=== PATIENT | female | born 1955 | race Caucasian/White ===

== ENCOUNTER 2024-12-21 17:44 | Inpatient (IN) ==
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
[2024-12-21] MEDS ORDERED: ONDANSETRON INJ 2 MG/ML 2 ML VIAL IV PRN (21:50)
[2024-12-21] MEDS ORDERED: POLYETHYLENE (MIRALAX) 17 GM PACK PO PRN (21:50)
[2024-12-21] MEDS ORDERED: ACETAMINOPHEN 325 MG TAB PO PRN (21:50)
[2024-12-21] MEDS ORDERED: CARBOHYDRATES FOR HYPOGLYCEMIA PO PRN (22:39)
[2024-12-21] MEDS ORDERED: GLUCOSE 40% GEL 15 GM TUBE PO PRN (22:39)
[2024-12-21] MEDS ORDERED: GLUCAGON FOR INJ 1 MG VIAL SQ PRN (22:39)
[2024-12-21] MEDS ORDERED: GLUCOSE 10 TAB/TUBE PO PRN (22:39)
[2024-12-21] MEDS ORDERED: DEXTROSE 50% 50 ML SYRINGE IV PRN (22:39)
[2024-12-21] MEDS ORDERED: NON-FORMULARY MEDICATION (Fluticasone-Umeclidin-Vilanter [Trelegy Ellipta] 100-62.5-25 mcg INH SCH (22:45)
[2024-12-21] MEDS ORDERED: MELATONIN 3 MG TAB PO PRN (23:08)
--- NOTE | 2024-12-21 23:27 | XRay Report ---
Exam(s): XR CXR 1 VIEW EXAM: XR Chest, 1 View CLINICAL HISTORY: Reason for exam: CHF. Lordotic positioning and breathing motion artifact limits evaluation particularly of the lung bases. TECHNIQUE: Frontal view of the chest. COMPARISON: Screening chest CT 03/31/2024. FINDINGS: Lungs/Pleural space: Grossly clear, limited evaluation of the lung bases. Effusions and basilar infiltrates can be missed. No pneumothorax. Heart: [id number] cardiomegaly. Mediastinum: Unremarkable. Bones/Soft Tissues: No acute abnormality. IMPRESSION: 1. No definite acute process in the chest, though evaluation is limited due to patient positioning. 2. Consider follow up chest x-ray for further evaluation. Electronically signed by: Marlene Lopez M.D. 12/21/24 23:26 PM
[2024-12-21] MEDS: ENOXAPARIN INJ 40 MG/0.4 ML SYR SQ SCH (23:40)
[2024-12-22 00:05] LABS: Base Excess VBG 16.9 mEq/L; HCO3 VBG 43 mmol/L; Oxygen Saturation VBG 100.0 %; PCO2 VBG 55 mmHg (38-50); PO2 VBG 103 mmHg; pH VBG 7.50 (7.36-7.41)
[2024-12-22 00:12] LABS: Hematocrit (blood only) 37.8 % (37.0-47.0); Hemoglobin 11.6 g/dl (12.0-16.0); Immature Granulocytes # (auto) 0.03 K/uL (0.01-0.20); Immature Granulocytes % (auto) 0.3 %; Mean Corpuscular Hemoglobin 27.6 pg (25.0-34.0); Mean Corpuscular Volume 89.8 fL (80.0-100.0); Platelet Count 194 K/uL (130-400); RDW Standard Deviation 49.9 fL (36.4-46.3); Red Blood Count 4.21 M/uL (4.20-5.40); White Blood Count 9.89 K/ul (4.8-10.8)
[2024-12-22] MEDS ORDERED: ALBUT/IPRATROP 3MG/0.5MG NEB 3 ML VIAL NEB PRN (00:20)
[2024-12-22 00:30] LABS: Albumin Level 3.2 gm/dl (3.4-5.0); Anion Gap 6.0 (3-11); Bilirubin,Total 0.4 mg/dl (0.2-1.0); Calcium 9.2 mg/dl (8.6-10.3); Carbon Dioxide 39.0 mmol/L (21-32); Chloride 92.0 mmol/L (98-107); Potassium 3.6 mmol/L (3.5-5.1); Sodium 137.0 mmol/L (136-145)
[2024-12-22 00:36] LABS: Alanine Aminotransferase 6.0 U/L (7-52); Albumin Globulin Ratio 1.1 (0.9-2); Alkaline Phosphatase 97.0 U/L (34-104); Blood Urea Nitrogen 15.0 mg/dl (6-23); Creatinine Clr Calc Pharmacy 104.7 ml/min; Globulin 2.9 gm/dl (2.5-4.0); Glucose 122.0 mg/dl (70-99(Fasting)); Total Protein 6.1 gm/dl (6.0-8.3)
[2024-12-22 05:55] LABS: Base Excess VBG 17.6 mEq/L; HCO3 VBG 47 mmol/L; Oxygen Saturation VBG < 60.0 %; PCO2 VBG 75 mmHg (38-50); PO2 VBG 29 mmHg; pH VBG 7.40 (7.36-7.41)
[2024-12-22 06:01] LABS: Hematocrit (blood only) 39.5 % (37.0-47.0); Hemoglobin 12.0 g/dl (12.0-16.0); Immature Granulocytes # (auto) 0.04 K/uL (0.01-0.20); Immature Granulocytes % (auto) 0.5 %; Mean Corpuscular Hemoglobin 27.4 pg (25.0-34.0); Mean Corpuscular Volume 90.2 fL (80.0-100.0); Platelet Count 196 K/uL (130-400); RDW Standard Deviation 50.2 fL (36.4-46.3); Red Blood Count 4.38 M/uL (4.20-5.40); White Blood Count 7.85 K/ul (4.8-10.8)
[2024-12-22 06:45] LABS: Anion Gap 3.0 (3-11); Blood Urea Nitrogen 14.0 mg/dl (6-23); Calcium 9.1 mg/dl (8.6-10.3); Carbon Dioxide 42.0 mmol/L (21-32); Chloride 95.0 mmol/L (98-107); Creatinine Clr Calc Pharmacy 110.2 ml/min; Glucose 103.0 mg/dl (70-99(Fasting)); Potassium 3.8 mmol/L (3.5-5.1); Sodium 140.0 mmol/L (136-145)
--- NOTE | 2024-12-22 07:56 | XRay Report ---
EXAM: XR chest 1V portable CLINICAL HISTORY: F/u CHF TECHNIQUE: An X-ray image of the chest was obtained in AP projection. COMPARISON: None. FINDINGS: Ill-defined haziness is noted involving the bilateral lower zones, with the possibility of basal congestion likely. Cardiomegaly. No acute osseous abnormality is identified. IMPRESSION: Ill-defined haziness is noted involving the bilateral lower zones, with the possibility of basal congestion likely. Cardiomegaly. Electronically signed by Jim Holbrook 12-22-2024 07:54 AM
[2024-12-22] MEDS ORDERED: FUROSEMIDE 40 MG/4 ML VIAL IV SCH (09:00)
[2024-12-22] MEDS: INSULIN ASPART PER UNIT CHARGE SC SCH (09:54)
[2024-12-22] MEDS: FLUTICASONE FUROATE 100MCG 14 PUFFS/INHALER INH SCH (09:59)
[2024-12-22] MEDS: FLUTICASONE PROPIONATE NA SPR 16 GM BTL SCH (10:00)
[2024-12-22] MEDS: FUROSEMIDE 40 MG/4 ML VIAL IV SCH (10:02)
[2024-12-22] MEDS: TOPIRAMATE 100 MG TAB PO SCH (10:03)
[2024-12-22] MEDS: METOPROLOL TARTRATE 25 MG TAB PO SCH (10:03)
[2024-12-22] MEDS: LORATADINE 10 MG TAB PO SCH (10:03)
[2024-12-22] MEDS: UMECLIDINIUM/VILANTEROL 62.5/25MCG 7 PUFFS/INHALER INH SCH (10:03)
[2024-12-22] MEDS: GABAPENTIN 400 MG CAP PO SCH (10:03)
[2024-12-22] MEDS: VIBEGRON 75 MG TAB PO SCH (10:03)
--- NOTE | 2024-12-22 12:31 | Hospitalist Progress Note ---
Date of Service December 22, 2024 Assessment & Plan (1) Acute CHF (congestive heart failure): (2) COPD (chronic obstructive pulmonary disease): (3) Diabetes mellitus, type 2: (4) AUTUMN (obstructive sleep apnea): Plan Pt is a 69 yo female with a medical hx of COPD, new dx of HFpEF, AUTUMN on CPAP, restrictive airway disease, current smoker, NSTEMI in 2016, and type 2 DM not on insulin at home who presents from [facility] due to insurance issues for continued care of acute CHF exac and new oxygen dependence on 12/21/24. #Acute CHF exac - echo done at OSH on 12/21; EF 60-64% with grade 1 diastolic dysfunction - CXR from outside facility on 12/20; "probable bibasilar atelectasis with mild interstitial prominence" - continue diuresis today as 40 mg IV laxix daily - CXR in the am for comparison, am labs #COPD, not in overt exac on admission here - NM pulm vent/perfusion scan done on 12/21 (pt has allergy to CT contrast); no PE - no baseline O2 needs - given 125mg methylprednisolone 125mg, continue 40mg BID - plan for taper at discharge - continue duonebs scheduled q6h - continue home inhalers - saturating well on 2-3L - will do 2 step for qualification of home oxygen - incentive spirometer/flutter valve #AUTUMN - CPAP HS #DMT2 - hold home medications - will do SSI, no long acting as she is not typically on insulin at home (can add long acting if needed based on use) VTE: lovenox Admission and Anticipated Discharge Date Admission Date: December 21, 2024 Supervising Physician Co-Signing Physician Notes Attending attestation Pt seen and examined in concert with Dr. Marinelli. In agreement with the documented findings as noted in the resident documentation with any exceptions or additions as noted here. Improving shortness of breath at rest with good tolerance on RA with conversation with O2 over 88%. Does sleep with long hair cats at night at home, does not use CPAP as noted. Supposed to use O2 qHS at 2L per patient. VS as noted. On examination, S1/S2 nl RRR no MCG. Diffusely coarse breath sounds throughout with some end exp wheezing. Abd NT/ND BS+ve Acute HFpEF with echo 10.1 as noted - improving with diuresis on furosemide. Monitor BMP daily. COPD with suboptimal control in the setting of deconditioning - continue steroid therapy with likely taper on discharge vs. burst. Duonebs tolerated well with benefit. Encourage CPAP use while sleeping in hospital. Else see resident documentation as noted. Subjective Patient seen and evaluated at bedside this morning. No acute events overnight. States she is feeling somewhat better. No acute complaints. Review of Systems Review of Systems: reviewed, per HPI Physical Exam Physical Exam: Constitutional: ill appearing, no acute distress HEENT: NCAT, no conjunctival injection CV: regular rhythm, no murmur appreciated, extremities well-perfused, + LE edema Resp: decreased breath sounds throughout, poor air movement, -appreciable wheeze GI: nondistended MSK: no gross deformities appreciated Skin: warm, dry, no rash appreciated Neuro: alert, oriented, no focal neurologic deficit appreciated Results & Data Results & Data Vital Signs (Past 12 Hours) Vital Signs Temp Pulse Pulse Resp BP Pulse Ox O2 Del Method 12/22/24 11:25 37.2 C 68 20 111/69 93 Nasal Cannula 12/22/24 07:42 37.0 C 88 20 124/77 95 Nasal Cannula 12/22/24 07:00 85 12/22/24 03:11 37 C 64 16 116/69 94 Room Air 12/22/24 02:41 77 17 97 O2 Flow Rate 12/22/24 11:25 2 12/22/24 07:42 3 12/22/24 07:00 12/22/24 03:11 12/22/24 02:41 3 Resident Activity Tracking Resident Involvement: Resident Care Provided Care Provided: Adult Hospital Medicine (2) COPD (chronic obstructive pulmonary disease) COPD type: unspecified COPD Qualified Code(s): J44.9 - Chronic obstructive pulmonary disease, unspecified (3) Diabetes mellitus, type 2 Diabetes mellitus complication detail: with unspecified neuropathy Diabetes mellitus complication status: with neurologic complications Diabetes mellitus fdc insulin use: without termite control service representative use Qualified Code(s): E11.40 - Type 2 diabetes mellitus with diabetic neuropathy, unspecified
[2024-12-22] MEDS: ALBUT/IPRATROP 3MG/0.5MG NEB 3 ML VIAL NEB SCH (13:37)
[2024-12-22] MEDS: MELATONIN 3 MG TAB PO PRN (23:40)
--- NOTE | 2024-12-23 06:50 | Hospitalist Progress Note ---
Date of Service December 23, 2024 Assessment & Plan (1) Acute CHF (congestive heart failure): (2) COPD (chronic obstructive pulmonary disease): (3) Diabetes mellitus, type 2: (4) AUTUMN (obstructive sleep apnea): Plan Pt is a 69 yo female with a medical hx of COPD, new dx of HFpEF, AUTUMN on CPAP, restrictive airway disease, current smoker, NSTEMI in 2016, and type 2 DM not on insulin at home who presents from [facility] due to insurance issues for continued care of acute CHF exac and new oxygen dependence on 12/21/24. #Acute CHF exac - echo done at OSH on 12/21; EF 60-64% with grade 1 diastolic dysfunction - CXR from outside facility on 12/20; "probable bibasilar atelectasis with mild interstitial prominence" - continue diuresis today as 40 mg IV laxix daily - CXR in the am for comparison, am labs #COPD, not in overt exac on admission here - NM pulm vent/perfusion scan done on 12/21 (pt has allergy to CT contrast); no PE - no baseline O2 needs - continue 40mg BID - plan for taper at discharge - continue duonebs scheduled q6h - continue home inhalers - saturating well on 2-3L -2 step for qualification of home oxygen completed- Shows 2L requirement for activity - incentive spirometer/flutter valve #AUTUMN - CPAP HS #DMT2 - BSG elevated to low 300's overnight likely due to IV steroids. Normalized this morning in 150 range - hold home medications - Continue SSI, no long acting as she is not typically on insulin at home (can add long acting if needed based on use) Dispo: med tele with likely DC home with home health 12/24 Diet: heart health, DM2 VTE: lovenox Code: Full Admission and Anticipated Discharge Date Admission Date: December 21, 2024 Supervising Physician Co-Signing Physician Notes I also saw the patient and confirmed pruett portions of the history and exam. I agree with the impression and plan as noted in the resident documentation. She feels much better today - at baseline. Two step shows need for home O2. She has CPAP at night but was not using - she reports that she now has replacement of the needed parts. No transport today but is arranged for AM tomorrow. Subjective No acute events overnight. Pt reports she is feeling much better this morning. Wore CPAP last night and has one for home now. She does not have an at home oxygen unit. Denies CP, SOB, dizziness, headache. Review of Systems Review of Systems: reviewed, per HPI Physical Exam Physical Exam: Constitutional: no acute distress, wearing nasal cannula at 2L O2 HEENT: NCAT, no conjunctival injection CV: regular rhythm, no murmur appreciated, extremities well-perfused, + LE edema Resp: decreased breath sounds and poor air movement in lower lobes, No wheezing noted GI: nondistended, Normoactive bowel sounds MSK: no gross deformities appreciated Skin: warm, dry, no rash appreciated Neuro: alert, oriented, no focal neurologic deficit appreciated Results & Data Results & Data Vital Signs (Past 12 Hours) Vital Signs Temp Pulse Pulse Resp BP Pulse Ox Pulse Ox 12/23/24 04:50 87 16 94 12/23/24 03:47 36.6 C 69 18 107/63 95 12/23/24 00:41 93 H 17 95 12/23/24 00:19 93 H 20 95 12/22/24 23:22 37.2 C 93 H 18 104/65 94 12/22/24 22:02 12/22/24 21:58 90 12/22/24 21:50 94 12/22/24 19:51 94 12/22/24 19:39 91 H 18 90 12/22/24 19:11 37.1 C 85 18 110/74 95 O2 Del Method O2 Del Method O2 Flow Rate O2 Flow Rate FiO2 12/23/24 04:50 3 12/23/24 03:47 CPAP 12/23/24 00:41 3 12/23/24 00:19 BiPAP 3 12/22/24 23:22 Room Air, Nasal Cannula 2 12/22/24 22:02 Nasal Cannula 3 12/22/24 21:58 12/22/24 21:50 Nasal Cannula 2 12/22/24 19:51 Nasal Cannula 2 12/22/24 19:39 Nasal Cannula 2 12/22/24 19:11 Nasal Cannula 2 Resident Activity Tracking Resident Involvement: Resident Care Provided Care Provided: Adult Hospital Medicine (2) COPD (chronic obstructive pulmonary disease) COPD type: unspecified COPD Qualified Code(s): J44.9 - Chronic obstructive pulmonary disease, unspecified (3) Diabetes mellitus, type 2 Diabetes mellitus complication detail: with unspecified neuropathy Diabetes mellitus complication status: with neurologic complications Diabetes mellitus mcc insulin use: without mcc use Qualified Code(s): E11.40 - Type 2 diabetes mellitus with diabetic neuropathy, unspecified
[2024-12-23 06:51] LABS: Hematocrit (blood only) 37.9 % (37.0-47.0); Hemoglobin 12.4 g/dl (12.0-16.0); Immature Granulocytes # (auto) 0.05 K/uL (0.01-0.20); Immature Granulocytes % (auto) 0.5 %; Mean Corpuscular Hemoglobin 28.6 pg (25.0-34.0); Mean Corpuscular Volume 87.5 fL (80.0-100.0); Platelet Count 246 K/uL (130-400); RDW Standard Deviation 46.3 fL (36.4-46.3); Red Blood Count 4.33 M/uL (4.20-5.40); White Blood Count 10.82 K/ul (4.8-10.8)
[2024-12-23 07:08] LABS: Anion Gap 7.0 (3-11); Blood Urea Nitrogen 19.0 mg/dl (6-23); Calcium 9.3 mg/dl (8.6-10.3); Carbon Dioxide 40.0 mmol/L (21-32); Chloride 88.0 mmol/L (98-107); Creatinine Clr Calc Pharmacy 56.8 ml/min; Glucose 153.0 mg/dl (70-99(Fasting)); Potassium 3.6 mmol/L (3.5-5.1); Sodium 135.0 mmol/L (136-145)
--- NOTE | 2024-12-24 06:47 | Discharge Summary ---
Date of Service December 24, 2024 Admission HPI Per Admitting Provider Pt is a 69 yo female with a medical hx of COPD, new dx of HFpEF, AUTUMN on CPAP, restrictive airway disease, current smoker, NSTEMI in 2016, and type 2 DM not on insulin at home who presents from [facility] due to insurance issues for continued care of acute CHF exac and new oxygen dependence on 12/21/24. Pt states that the end of last week she started to feel SOB. She states it started the last few months but particularly worse the end of last week. She states she really didn't want to go to the hospital as when she has gone in the past they told her to just f/u with her PCP. She states she is not on oxygen at home and usually uses CPAP at night but her nasal piece broke (she thinks her cat was playing with it and broke it) and that shes still waiting for that to be fixed. She states she was SOB throughout the weekend and wondering if she needs oxygen at home. She ended up calling her PCP on Thursday (12/19) and reported difficulty breathing at which point her friend who was with her encouraged her to go to the hospital; went to [facility] and was admitted. She states since being there on Thursday she is feeling overall much better. No chest pain. SOB is much improved. She does report a peculiar family hx; she states strong family hx of CAD, many aunts and uncles have had MIs and her dad of an GA at 58. She states she herself had an GA, and no issues since that she knows about. She states from age 16 to recently she smoked 2 ppd and now she is only smoking 2 cigarettes a day. Principal Diagnosis CHF exacerbation/COPD Discharge Exam Constitutional: no acute distress, wearing nasal cannula at 2L O2 HEENT: NCAT, no conjunctival injection CV: regular rhythm, no murmur appreciated, extremities well-perfused, trace- nonpitting LE edema Resp: decreased breath sounds and poor air movement in lower lobes, No wheezing noted GI: nondistended, Normoactive bowel sounds MSK: no gross deformities appreciated Skin: warm, dry, no rash appreciated Neuro: alert, oriented, no focal neurologic deficit appreciated Discharge Data Allergies Allergy/AdvReac Type Severity Reaction Status Date / Time aspirin Allergy Severe sob and Verified 11/24/24 10:19 swelling in the arms and facial bee venom protein (honey bee) Allergy Severe Anaphylaxis Verified 11/24/24 10:19 codeine Allergy Severe severe Verified 11/24/24 10:19 headache and syncope latex Allergy Severe blisters Verified 11/24/24 10:19 on both arms Penicillins Allergy Severe rash,itching, Verified 11/24/24 10:19 severe headache, blurry eyes, vomits strawberry Allergy Severe Anaphylaxis Verified 11/24/24 10:19 sulfamethoxazole Allergy Severe hives/blist Verified 11/24/24 10:19 [From Bactrim] ers tomato Allergy Severe itchy skin Verified 11/24/24 10:19 and "looks like a [place] tree" triamcinolone Allergy Severe blisters/re Verified 11/24/24 10:19 dness trimethoprim [From Bactrim] Allergy Severe Hives/blist Verified 11/24/24 10:19 ers clindamycin Allergy Intermediate rash Verified 11/24/24 10:19 ketoconazole Allergy Intermediate rash/itchin Verified 11/24/24 10:19 g metformin Allergy Intermediate rash, Verified 11/24/24 10:19 nausea ciclopirox AdvReac Severe blisters/re Verified 11/24/24 10:19 dness diclofenac AdvReac Intermediate severe Verified 11/24/24 10:19 headaches and diarrhea and vomitting Iodinated Contrast Media AdvReac Intermediate Vomiting, Verified 11/24/24 10:19 nausea, dizziness, BATRES naproxen AdvReac Intermediate Vomiting/ Verified 11/24/24 10:19 diarrhea ropinirole AdvReac Mild dry Verified 11/24/24 10:19 throat, cough Hospital Course (1) Acute CHF (congestive heart failure): (2) COPD (chronic obstructive pulmonary disease): (3) Diabetes mellitus, type 2: (4) AUTUMN (obstructive sleep apnea): Plan Pt is a 69 yo female with a medical hx of COPD, new dx of HFpEF, AUTUMN on CPAP, restrictive airway disease, current smoker, NSTEMI in 2016, and type 2 DM not on insulin at home who presents from [facility] due to insurance issues for continued care of acute CHF exac and new oxygen dependence on 12/21/24. #Acute CHF exac - echo done at OSH on 12/21; EF 60-64% with grade 1 diastolic dysfunction - CXR from outside facility on 12/20; "probable bibasilar atelectasis with mild interstitial prominence" - received diuresis with 40 mg IV laxix daily #COPD, not in overt exac on admission here - NM pulm vent/perfusion scan done on 12/21 (pt has allergy to CT contrast); no PE - no baseline O2 needs - received 125mg methylprednisone on 12/22 - received duonebs scheduled q6h - continue home inhalers - saturating well on 2L -2 step for qualification of home oxygen completed 12/23- Shows 2L requirement for activity - incentive spirometer/flutter valve #AUTUMN - CPAP HS #DMT2 - BSG ranginf from 110- 160's - hold home medications - Continue SSI, no long acting as she is not typically on insulin at home (can add long acting if needed based on use) - Return to home medication upon DC Dispo: DC home with home health to start 12/25 Diet: heart health, DM2 Code: Full Total Time Total Time Spent Total Time Spent (In Minutes): Alexis Redmond DO, attending physician, spent 20 minutes myself seeing the patient, reviewing the chart, and documenting today. Discharge Plan Discharge Items Patient Disposition: Home - Home Health Services Reason For Visit: ACUTE CHRONIC HEART FAILURE WITH HFPEF Discharge Diagnosis: CHF exacerbation, CoPD Activity: Resume your previous activity Non-emergency contact: Primary Care Provider Call non-emergency contact if: your symptoms worsen Follow-up/Referrals: Saskia Guzmán CRNP [Primary Care Provider] - 01/03/25 11:00 am Diet: Carb Consistent or DM2 and Heart Healthy Addtl Attending Provider Instructions: You were admitted to the hospital due to exacerbation of chronic heart failure and caused increased difficulty breathing. You were treated with medication to reduce the fluid in your body, which reduces the work for your heart. During your time in the hospital, you requires supplemental oxygen. It was determined that you need to use oxygen while you are at home due to low oxygen saturation when you are walking or moving around. That will be provided for you at home through your insurance. At night, continue using your CPAP machine for sleeping. Please resume your home medications. Follow up with your legal paraprofessional in the next 2 weeks. Also follow up with your primary care physician in the next 7 days. Pending Studies at Discharge: No Stand-Alone Forms: My [facility], Smoking Cessation Medications and DC Order Prescriptions: Continued (DME) CPAP Machine Misc See Rx Instructions .Route Qty: 1 0RF Rx Instructions: As directed 14 cm H2O 1 L O2 (DME) Sleep apnea machinesettings See Rx Instructions .Route .MEDSUPPLY Qty: 1 0RF Rx Instructions: CPAP 14 cm water with 1 L oxygen per minute at night. cholecalciferol (vitamin D3) [Vitamin D3] 25 mcg (1,000 unit) capsule 50 mcg PO QAM Qty: 90 3RF loratadine 10 mg tablet 10 mg PO QAM Qty: 90 3RF Rx Instructions: Does not need immediately (DME) 4 pronged cane See Rx Instructions .Route .MEDSUPPLY Qty: 1 0RF Rx Instructions: As directed lisinopril 2.5 mg tablet 2.5 mg PO QAM Qty: 90 3RF mirabegron [Myrbetriq] 25 mg tablet extended release 24 hr 25 mg PO DAILY Qty: 30 2RF ibuprofen 600 mg tablet 600 mg PO Q8H PRN (Reason: pain) Qty: 90 0RF (DME) CPAP Supplies:1 - A7031 full face mask 1 - A7046 water chamber 2 - A7038 disposable filters 1 - A7032 See Rx Instructions .Route .MEDSUPPLY Qty: 1 0RF Rx Instructions: Use nightly (DME) blood-glucose meter [Accu-Chek Guide Glucose Meter] Misc See Rx Instructions .Route Qty: 1 0RF Rx Instructions: As directed. E11.9. Check glucose once daily. (DME) Accu-Chek Guide test strips Strip See Rx Instructions .Route Qty: 100 11RF Rx Instructions: As directed. E11.9. Check glucose once daily. (DME) lancets [Accu-Chek Softclix Lancets] Misc See Rx Instructions .Route Qty: 100 11RF Rx Instructions: As directed. E11.9. Check glucose once daily. gabapentin 400 mg capsule 400 mg PO BID Qty: 60 2RF magnesium oxide 400 mg (241.3 mg magnesium) tablet 400 mg PO DAILY Qty: 90 3RF Stiolto Respimat 2.5-2.5 mcg/actuation mist 2 puff INHALATION QAM Qty: 4 3RF omeprazole 40 mg capsule,delayed release(DR/EC) 40 mg PO QAM Qty: 30 2RF topiramate 100 mg tablet 100 mg PO BID 90 Days Qty: 180 1RF torsemide 20 mg tablet 40 mg PO QAM Qty: 60 2RF (DME) 4 wheel Rolling walker with seat See Rx Instructions .Route .MEDSUPPLY Qty: 1 0RF Rx Instructions: As directed (DME) Stocking Zack See Rx Instructions .Route .MEDSUPPLY Qty: 1 0RF Rx Instructions: As directed (DME) Jobst Stockings Knee high 45 cm calf circ See Rx Instructions .Route .MEDSUPPLY Qty: 3 5RF Rx Instructions: As directed atorvastatin 40 mg tablet 40 mg PO QAM Qty: 90 1RF albuterol sulfate 1.25 mg/3 mL solution for nebulization 1.25 mg inhalation QID PRN (Reason: shortness of breath or wheezing) Qty: 75 5RF fluticasone propionate [Flonase Allergy Relief] 50 mcg/actuation spray,suspension 2 spray intranasal DAILY Qty: 16 2RF Rx Instructions: administer into each nostril (DME) Jobst Knee high See Rx Instructions .Route .MEDSUPPLY Qty: 3 2RF Rx Instructions: As directed Trelegy Ellipta 100-62.5-25 mcg blister with device 1 inh inhalation Q24H Qty: 60 2RF melatonin 5 mg tablet,disintegrating 5 mg PO HS PRN (Reason: sleep) Qty: 90 3RF (DME) Full CPAP Mask L See Rx Instructions .Route .MEDSUPPLY Qty: 1 0RF Rx Instructions: Use nightly with CPAP for sleep apnea Januvia 50 mg tablet 50 mg PO QAM Qty: 30 2RF (DME) Diabetic Shoes See Rx Instructions .Route .MEDSUPPLY Qty: 1 0RF Rx Instructions: As directed metoprolol tartrate 25 mg tablet 12.5 mg PO BID Qty: 90 1RF trazodone 100 mg tablet 100 mg PO HS Rx Instructions: MANAGED BY [employer] duloxetine 60 mg capsule,delayed release(DR/EC) 60 mg PO QAM Nurtec ODT 75 mg tablet,disintegrating 75 mg PO UD PRN (Reason: Migraine Headache) Rx Instructions: 75 mg PO take one tablet as needed for migraine Discharge Orders: Discharge Order (Routine); Ordered 12/24/24 Ordered By: Marti Boss/Other Patient Handouts: Heart Failure Make Changes Diet Admission Data Admit Date/Time: 12/21/24 21:45 Attending Provider: Alexis Frances Admit Provider: Mike Iraheta Primary Care Provider: Saskia Guzmán V. Other Providers: [facility]; [facility]; [facility] Other Interventions: Discharge Summary Assessment (RN) Last Done: 12/24/24 10:35 Supervising Physician Co-Signing Physician Notes I also saw the patient and confirmed pruett portions of the history and exam. I agree with the impression and plan as noted in the resident documentation. Upon morning rounds, patient up and out of bed, ambulatory. She has no new concerns. Feels well and is anticipating discharge. She does have oxygen at home already. She has CPAP at night but was not using - she reports that she now has replacement of the needed parts. Discussed risk of smoking with oxygen - she is aware. Resident Activity Tracking Resident Involvement: Resident Care Provided Care Provided: Adult Hospital Medicine
[2024-12-24 07:31] VITALS: O2SAT 90
[2024-12-24 08:25] VITALS: RESP 20; TEMP 98.1
[2024-12-24 10:36] VITALS: BP 108/66
[2024-12-24 12:07] VITALS: PULSE 86
== END 2024-12-24 12:16 | disposition home health service (06) | DRG 293 ==
LOC: 2N 20:59 → SUATTDRO 20:59